=== PATIENT | male | born 1975 | race Asian ===

== ENCOUNTER 2024-03-17 10:27 | Outpatient (CLI) | payer OTHER | END 2024-03-17 10:28 | disposition home or self-care (01) | LOC: BICRAD 10:27 | PROVIDERS: ATTEND Family Medicine | DX: R05.2 Subacute cough (principal) | CPT/HCPCS: 71046 ==

== ENCOUNTER 2024-10-31 13:09 | Outpatient (CLI) | payer BC | END 2024-10-31 13:10 | disposition home or self-care (01) | LOC: BICRAD 13:09 | PROVIDERS: ATTEND Family Medicine | DX: M51.17 Intervertebral disc disorders with radiculopathy, lumbosacral region (principal); M43.17 Spondylolisthesis, lumbosacral region | CPT/HCPCS: 72100 ==